=== PATIENT | female | born 1975 ===

== ENCOUNTER → 2016-10-23 | Outpatient (CLI) | payer BC ==
[~2016-10-23] MED LIST: CABE0.5T PO; LORA10TA5 PO; MTR600X PO; MULT-506 PO
--- NOTE | 2016-10-26 13:17 | MAMMOGRAPHY REPORT ---
BILATERAL DIGITAL SCREENING MAMMOGRAM TOMOSYNTHESIS WITH CAD: 10/23/2016 CLINICAL HISTORY: Routine screening. Baseline exam. TECHNIQUE: Breast tomosynthesis in addition to standard 2D mammography was performed. Current study was also evaluated with a Computer Aided Detection (CAD) system. COMPARISON: No prior exams were available for comparison. BREAST COMPOSITION: There are scattered areas of fibroglandular density in both breasts. FINDINGS: There is an oval circumscribed 6 mm mass within the right lower inner quadrant, for which ultrasound and possible additional spot compression views are recommended for further evaluation, giv en no priors to document stability. The remainder of both breasts are negative, without suspicious masses, calcifications, or areas of ar chitectural distortion noted. A 7 mm circumscribed reniform mass in the right superior breast on the MLO view has the appearance of a morphologically normal intramammary lymph node. IMPRESSION: ACR BI-RADS CATEGORY 0: INCOMPLETE EVALUATION: NEED ADDITIONAL IMAGING EVALUATION Right lower inner quadrant breast mass, for which additional imaging evaluation is recommended. The patient will be called to schedule an appointment. Approximately 10% of breast cancers are not detected with mammography. A negative mammographic report should not delay biopsy if a clinically suggestive mass is present. Ingrid Borjas M.D. /:10/25/2016 14:34:21 Waiter/Waitress Room Service: Bernice SMART)(Linda), [facility] letter sent: Addl Imaging 0 BI-RADS Code: ACR BI-RADS Category 0: Incomplete Evaluation: Need Additional Imaging Evaluation
== END | disposition home or self-care (01) ==
LOC: C.MAMM 09:41
PROVIDERS: ATTEND Obstetrics & Gynecology
DX: Z12.31 Encounter for screening mammogram for malignant neoplasm of breast (principal); N63 Unspecified lump in breast

== ENCOUNTER → 2016-11-04 | Outpatient (CLI) | payer BC ==
--- NOTE | 2016-11-04 13:28 | MAMMOGRAPHY REPORT ---
ULTRASOUND OF BOTH BREASTS: 11/04/2016 CLINICAL HISTORY: 41 year-old woman called back from screening mammography for an oval circumscribed 6 mm mass in the lower inner quadrant of the right breast. COMPARISON: Comparison is made to exam dated: 10/23/2016 mammogram - [facility]. FINDINGS: Targeted ultrasound was performed in the medial right breast from the approximate 2:00 thr ough 4:00 axes. In the 3:30 axis, 5 cm from the nipple, there is an oval parallel circumscribed anec hoic cyst with posterior acoustic enhancement which measures 5.2 x 3.3 x 4.6 mm. This may be slightl y undermeasured sonographically. This correlates well in size, shape and location as the mammographi c mass and is benign. No further workup is needed at this time. IMPRESSION: ACR BI-RADS CATEGORY 2: BENIGN The oval circumscribed 6 mm mass in the right medial breast correlates with a benign simple cyst on u ltrasound, identified in the 3:30 axis. There is no sonographic evidence of malignancy in the right breast. A 1 year screening mammogram is recommended. These results and recommendations were discussed with the patient at the time of the exam. Bonnie Paige M.D. ay/:11/04/2016 08:26:46 Attending Technologist: Constantino SMART)(M), [facility] Instrument Calibrator: Dr. Bonnie Paige, [facility] letter sent: Normal 1/2 BI-RADS Code: ACR BI-RADS Category 2: Benign
== END | disposition home or self-care (01) ==
LOC: C.MAMM 07:55
PROVIDERS: ATTEND Obstetrics & Gynecology
DX: N63 Unspecified lump in breast (principal)

== ENCOUNTER → 2017-08-05 | Outpatient (CLI) | payer BC ==
[~2017-08-05] MED LIST changes: -LORA10TA5 PO; +LORA10TA6 PO
== END | disposition home or self-care (01) ==
LOC: C.PATHSPEC 17:50
PROVIDERS: ATTEND Surgery
DX: L72.9 Follicular cyst of the skin and subcutaneous tissue, unspecified (principal)